=== PATIENT | male | born 1945 | race Caucasian/White ===

== ENCOUNTER → 2017-10-22 | Outpatient (CLI) | payer OTHER | END | disposition home or self-care (01) | LOC: CFH 08:54 | PROVIDERS: ATTEND Family Medicine | DX: M51.36 Other intervertebral disc degeneration, lumbar region (principal); M48.061 Spinal stenosis, lumbar region without neurogenic claudication; M48.07 Spinal stenosis, lumbosacral region; M47.896 Other spondylosis, lumbar region; M47.897 Other spondylosis, lumbosacral region; M51.26 Other intervertebral disc displacement, lumbar region; M51.27 Other intervertebral disc displacement, lumbosacral region; M79.601 Pain in right arm | CPT/HCPCS: 70250; 72148 ==

== ENCOUNTER → 2017-11-30 | Outpatient (CLI) | payer OTHER | END | disposition home or self-care (01) | LOC: CFH 12:03 | PROVIDERS: ATTEND Nurse Practitioner Family | DX: M94.261 Chondromalacia, right knee (principal); M71.21 Synovial cyst of popliteal space [Baker], right knee ==